=== PATIENT | male | born 1975 | race Caucasian/White ===

== ENCOUNTER 2017-08-30 04:19 | Emergency (ER) | payer SELFPAY ==
[~2017-08-30] VITALS: Ht 172.7 cm; Wt 70.3 kg
[~2017-08-30 04:19] MED LIST: CLIN150C14 PO; OXYC-323 PO
[2017-08-30 04:27] VITALS: BP 155/83
[2017-08-30] MEDS ORDERED: NAPR-695 PO (04:36)
[2017-08-30] MEDS ORDERED: METH35.4 TP (04:36)
--- NOTE | 2017-08-30 04:37 | PHYS DOC ---
Past Medical History Past Medical History: No Pertinent History Past Surgical History: Other Additional Past Surgical Histo: WISDOM TEETH Alcohol Use: Occasionally Drug Use: None Adult General Chief Complaint Chief Complaint: BACK PAIN OR INJURY HPI HPI Patient is a 41 year old male who presents up with complains of low back pain going on for a few days. Patient denies any fevers, rashes, incontinence or retention or saddle anesthesia. No direct trauma. Patient has a history of sciatica. Patient states some his low back started but back bothering him when he was at work, he feels worse when he extends or reaches for things or twists his trunk. No other complaints Review of Systems Review of Systems Constitutional: Denies fever or chills [] HENT: Denies nasal congestion or sore throat [] Respiratory: Denies cough or shortness of breath [] Cardiovascular: No chest pain GI: Denies abdominal pain, nausea, vomiting : Denies dysuria or hematuria or incontinence or retention Musculoskeletal: Denies joint pain. Yes to low back pain Integument: Denies rash or skin lesions [] Neurologic: Denies headache, focal weakness or sensory changes. Denies isidro with ambulation Allergies Allergies Allergies Coded Allergies Type Severity Reaction Last Updated Verified Penicillins Allergy Intermediate HIVES 06/30/14 Yes Physical Exam Physical Exam Constitutional: Well developed, well nourished, no acute distress, non-toxic appearance. [] HENT: Normocephalic, atraumatic, Eyes: EOMI, conjunctiva normal, no discharge. [] Neck: Normal range of motion, no tenderness, supple, no stridor. [] Cardiovascular:Heart rate regular rhythm, no murmur, normal perfusion Lungs & Thorax: No tachypnea Abdomen: Bowel sounds normal, soft, no tenderness, no masses, no pulsatile masses. [] Skin: Warm, dry, no erythema, no rash. [] Back: Mild diffuse tenderness to palpation in the low back, there are no step- offs. Extremities: No tenderness, no cyanosis, , ROM intact, no edema. [] Neurologic: Alert and oriented X 3, normal motor function, ambulates with normal gait without assistance in the ED, no focal deficits noted. [] Psychologic: Affect normal, judgement normal, mood normal. [] EKG EKG [] Radiology/Procedures Radiology/Procedures [] Course & Med Decision Making Course & Med Decision Making Pertinent Labs and Imaging studies reviewed. (See chart for details) [] Dragon Disclaimer Dragon Disclaimer This electronic medical record was generated, in whole or in part, using a voice recognition dictation system. Departure Departure Impression: Primary Impression: Low back pain Disposition: HOME, SELF-CARE Condition: STABLE Referrals: NO PCP (PCP) Patient Instructions: Back Pain, Adult Additional Instructions: Please be sure to be rechecked and reevaluated in 2 days, is to follow-up with your PCP or at one of the clinics in the list provided to you today. If your symptoms worsen or new concerning symptoms develop please return to the ED immediately Scripts Methyl Salicylate/Menthol (ICY HOT CREAM) 35.4 Gm Cream..g. 35.4 GM TP BID for 3 Days, #6 EACH apply thin layer to affected area Prov: Elsa BEE MD 08/30/17 Naproxen (NAPROXEN) 375 Mg Tablet 1 TAB PO TID for 7 Days, #21 TAB 0 Refills Prov: Elsa BEE MD 08/30/17 Elsa BEE MD Aug 30, 2017 04:37
== END 2017-08-30 04:53 | disposition home or self-care (01) ==
LOC: ER 04:19
DX: M54.5 Low back pain (principal); Z88.0 Allergy status to penicillin
CPT/HCPCS: 99283

== ENCOUNTER 2018-05-17 13:35 | Emergency (ER) | payer BC ==
[2018-05-17] MEDS: ASPIRIN CHEWABLE 81 MG TABLET. PO (13:55)
[2018-05-17 14:04] LABS: ADD MAN DIFF? NO
[2018-05-17 14:10] LABS: BASO # 0.1 x10^3/uL (0.0-0.2); BASO % 0 % (0-3); EOS # 0.1 x10^3/uL (0.0-0.7); EOS % 0 % (0-3); HEMATOCRIT 43.3 % (39.0-53.0); HEMOGLOBIN 14.8 g/dL (13.0-17.5); LYMPH # 1.8 x10^3/uL (1.0-4.8); LYMPH % 14 % (24-48); MEAN CORPUSCULAR HEMOGLOBIN 31 pg (25-35); MEAN CORPUSCULAR HGB CONC 34 g/dL (31-37); MEAN CORPUSCULAR VOLUME 91 fL (79-100); MONO # 0.5 x10^3/uL (0.0-1.1); MONO % 4 % (0-9); NEUT # 10.5 x10^3uL (1.8-7.7); NEUT % 81 % (31-73); PLATELET COUNT 243 x10^3/uL (140-400); RED BLOOD COUNT 4.74 x10^6/uL (4.30-5.70); WHITE BLOOD COUNT 12.9 x10^3/uL (4.0-11.0)
[2018-05-17 14:18] LABS: INR 1.1 (0.8-1.1); PROTHROMBIN TIME PATIENT 13.4 SEC (11.7-14.0)
[2018-05-17 14:21] LABS: ANION GAP 3 (6-14); BLOOD UREA NITROGEN 12 mg/dL (8-26); BUN/CREATININE RATIO 13 (6-20); CALCIUM 8.7 mg/dL (8.5-10.1); CARBON DIOXIDE 29 mmol/L (21-32); CHLORIDE 107 mmol/L (98-107); CREATININE 0.9 mg/dL (0.7-1.3); GFR 93.5; GLUCOSE 118 mg/dL (70-99); SODIUM 139 mmol/L (136-145)
[2018-05-17 14:26] LABS: ALBUMIN 4.1 g/dL (3.4-5.0); ALBUMIN/GLOBULIN RATIO 1.1 (1.0-1.7); ALK PHOS 81 U/L (46-116); ALT (SGPT) 25 U/L (16-63); AST (SGOT) 19 U/L (15-37); CREATINE KINASE 124 U/L (39-308); LIPASE 171 U/L (73-393); MAGNESIUM 2.2 mg/dL (1.8-2.4); TOTAL BILIRUBIN 0.4 mg/dL (0.2-1.0); TOTAL PROTEIN 7.8 g/dL (6.4-8.2)
[2018-05-17 14:30] LABS: TROPONINI < 0.017 ng/mL (0.000-0.055)
[2018-05-17 14:35] LABS: NT-PRO BNP 44 pg/mL (0-124)
[2018-05-17 14:35] LABS: CKMB INDEX 0.7 % (0-4); CKMB MASS 0.9 ng/mL (0.0-3.6); CREATINE KINASE 126 U/L (39-308)
== END 2018-05-17 15:45 | disposition home or self-care (01) ==
LOC: ER 13:35
DX: F41.0 Panic disorder [episodic paroxysmal anxiety] (principal); R07.89 Other chest pain; F19.10 Other psychoactive substance abuse, uncomplicated; R11.0 Nausea; R42 Dizziness and giddiness; F17.210 Nicotine dependence, cigarettes, uncomplicated; Z71.6 Tobacco abuse counseling; Z88.0 Allergy status to penicillin; Z91.013 Allergy to seafood
CPT/HCPCS: 36415; 71045; 80053; 82550; 82553; 83690; 83735; 83880; 84484; 85025; 85610; 93005; 99285-25

== ENCOUNTER 2018-05-22 12:51 | Emergency (ER) | payer SELFPAY, BC ==
[2018-05-22 13:11] LABS: ADD MAN DIFF? NO
[2018-05-22] MEDS: IV NORMAL SALINE 1000ML BAG 1,000 ML IV (13:15)
[2018-05-22 13:17] LABS: BASO # 0.1 x10^3/uL (0.0-0.2); BASO % 1 % (0-3); EOS % 0 % (0-3); HEMATOCRIT 47.2 % (39.0-53.0); HEMOGLOBIN 16.2 g/dL (13.0-17.5); LYMPH % 15 % (24-48); MEAN CORPUSCULAR HEMOGLOBIN 31 pg (25-35); MEAN CORPUSCULAR HGB CONC 34 g/dL (31-37); MEAN CORPUSCULAR VOLUME 91 fL (79-100); MONO # 0.6 x10^3/uL (0.0-1.1); MONO % 5 % (0-9); NEUT # 10.4 x10^3uL (1.8-7.7); NEUT % 79 % (31-73); PLATELET COUNT 316 x10^3/uL (140-400); RED BLOOD COUNT 5.17 x10^6/uL (4.30-5.70)
[2018-05-22] MEDS: ASPIRIN 325 MG TABLET PO (13:18)
[2018-05-22 13:26] LABS: INR 1.1 (0.8-1.1); PARTIAL THROMBOPLASTIN TIME 36 SEC (24-38); PROTHROMBIN TIME PATIENT 13.6 SEC (11.7-14.0)
[2018-05-22 13:30] LABS: MAGNESIUM 1.8 mg/dL (1.8-2.4)
[2018-05-22 13:30] LABS: LIPASE 92 U/L (73-393)
[2018-05-22 13:32] LABS: D-DIMER 0.27 ug/mlFEU (0.00-0.50)
[2018-05-22 13:38] LABS: ACETAMIN < 2 mcg/ml (10-30); ETHANOL < 10 mg/dL (0-10); SALIC < 2.8 mg/dL (2.8-20.0)
[2018-05-22 13:38] LABS: TROPONINI < 0.017 ng/mL (0.000-0.055)
[2018-05-22 13:44] LABS: CKMB INDEX 0.7 % (0-4); CKMB MASS 0.9 ng/mL (0.0-3.6); CREATINE KINASE 122 U/L (39-308)
[2018-05-22 13:44] LABS: NT-PRO BNP 23 pg/mL (0-124)
[2018-05-22 13:45] LABS: THYROID STIM HORMONE (TSH) 0.629 uIU/mL (0.358-3.74)
[2018-05-22 14:16] LABS: ANION GAP 17 (6-14); BLOOD UREA NITROGEN 12 mg/dL (8-26); BUN/CREATININE RATIO 9 (6-20); CALCIUM 10.1 mg/dL (8.5-10.1); CARBON DIOXIDE 23 mmol/L (21-32); CHLORIDE 98 mmol/L (98-107); CREATININE 1.3 mg/dL (0.7-1.3); GFR 61.1; GLUCOSE 148 mg/dL (70-99); POTASSIUM 3.6 mmol/L (3.5-5.1); SODIUM 138 mmol/L (136-145)
[2018-05-22 14:22] LABS: ALBUMIN 4.7 g/dL (3.4-5.0); ALBUMIN/GLOBULIN RATIO 1.3 (1.0-1.7); ALK PHOS 76 U/L (46-116); ALT (SGPT) 22 U/L (16-63); AST (SGOT) 19 U/L (15-37); TOTAL BILIRUBIN 1.2 mg/dL (0.2-1.0); TOTAL PROTEIN 8.4 g/dL (6.4-8.2)
== END 2018-05-22 15:50 | disposition home or self-care (01) ==
LOC: ER 12:51
DX: F41.9 Anxiety disorder, unspecified (principal); R07.89 Other chest pain; E86.0 Dehydration; F14.10 Cocaine abuse, uncomplicated; F15.10 Other stimulant abuse, uncomplicated; F12.10 Cannabis abuse, uncomplicated; Z88.0 Allergy status to penicillin; R20.2 Paresthesia of skin; Z91.013 Allergy to seafood
CPT/HCPCS: 36415; 71045; 80053; 80329; 82553; 83690; 83735; 83880; 84443; 84484; 85025; 85379; 85610; 85730; 93005; 96361; 96374; 99285-25; G0480; G6039; J2060; J7030

== ENCOUNTER → 2018-10-31 | Emergency (ER) | payer OTHER ==
[~2018-10-31] VITALS: Ht 182.9 cm; Wt 72.6 kg
[~2018-10-31] MED LIST changes: +HYDR25TA PO; +METH35.4 TP; +NAPR-695 PO; -OXYC-323 PO; +OXYC1TAB15 PO
[2018-10-31 04:47] LABS: BASO # 0.1 x10^3/uL (0.0-0.2); BASO % 1 % (0-3); EOS # 0.1 x10^3/uL (0.0-0.7); EOS % 2 % (0-3); HEMATOCRIT 43.4 % (39.0-53.0); HEMOGLOBIN 14.9 g/dL (13.0-17.5); LYMPH # 3.1 x10^3/uL (1.0-4.8); LYMPH % 38 % (24-48); MEAN CORPUSCULAR HEMOGLOBIN 32 pg (25-35); MEAN CORPUSCULAR HGB CONC 34 g/dL (31-37); MEAN CORPUSCULAR VOLUME 94 fL (79-100); MONO # 0.3 x10^3/uL (0.0-1.1); MONO % 4 % (0-9); NEUT # 4.6 x10^3uL (1.8-7.7); NEUT % 56 % (31-73); PLATELET COUNT 233 x10^3/uL (140-400); RED BLOOD COUNT 4.63 x10^6/uL (4.30-5.70); RED CELL DISTRIBUTION WIDTH 13.3 % (11.5-14.5); WHITE BLOOD COUNT 8.3 x10^3/uL (4.0-11.0)
[2018-10-31 04:56] LABS: CALCIUM 8.5 mg/dL (8.5-10.1); CREATININE 0.8 mg/dL (0.7-1.3); GFR 106.5; POTASSIUM 3.6 mmol/L (3.5-5.1)
[2018-10-31 05:03] LABS: ACETAMIN < 2 mcg/ml (10-30); ALBUMIN 3.6 g/dL (3.4-5.0); ETHANOL 59 mg/dL (0-10); SALIC 3.1 mg/dL (2.8-20.0); TOTAL BILIRUBIN 0.2 mg/dL (0.2-1.0); TOTAL PROTEIN 7.1 g/dL (6.4-8.2)
--- NOTE | 2018-10-31 05:06 | PHYS DOC ---
Past Medical History Past Medical History: Anxiety, Depression Past Surgical History: Other Additional Past Surgical Histo: WISDOM TEETH Alcohol Use: Occasionally Drug Use: Cocaine, Heroin, Marijuana, Methamphetamine, Other Adult General Chief Complaint Chief Complaint: DEPRESSION HPI HPI 43-year-old male who presents with complaint of severe depression. Patient states that he has been under an extreme amount of stress, having just recently lost his job, lost his place of living and his car. Patient does admit to having had some thoughts of suicide but has not had any plan. He states that he just feels very helpless due to his situation and wants to get help. He denies chest pain, shortness breath or other symptoms. Review of Systems Review of Systems Constitutional: Denies fever or chills [] Respiratory: Denies cough or shortness of breath [] Cardiovascular: No additional information not addressed in HPI [] Neurologic: Denies headache, focal weakness or sensory changes [] Psychiatric: Complains of depression and suicidal ideation without plan. [] All other systems were reviewed and found to be within normal limits, except as documented in this note. Allergies Allergies Allergies Coded Allergies Type Severity Reaction Last Updated Verified shellfish derived Allergy Severe ANAPHYLAXIS 05/22/18 Yes Penicillins Allergy Intermediate HIVES 05/22/18 Yes Physical Exam Physical Exam Constitutional: Well developed, well nourished, no acute distress, non-toxic appearance. [] HENT: Normocephalic, atraumatic, bilateral external ears normal, oropharynx moist, no oral exudates, nose normal. [] Eyes: PERRLA, EOMI, conjunctiva normal, no discharge. [] Neck: Normal range of motion, no tenderness, supple, no stridor. [] Cardiovascular:Heart rate regular rhythm, no murmur [] Lungs & Thorax: Bilateral breath sounds clear to auscultation [] Abdomen: Bowel sounds normal, soft, no tenderness, no masses, no pulsatile masses. [] Skin: Warm, dry, no erythema, no rash. [] Extremities: No tenderness, no cyanosis, no clubbing, ROM intact, no edema. [] Neurologic: Alert and oriented X 3, normal motor function, normal sensory function, no focal deficits noted. [] Psychologic: Patient has mildly flattened affect with depressed mood. Patient is tearful on exam. [] Current Patient Data Vital Signs Vital Signs Date Time Temp Pulse Resp B/P (MAP) Pulse Ox O2 Delivery O2 Flow Rate FiO2 10/31/18 06:03 77 109/67 (81) 97 Room Air 10/31/18 02:42 97.7 16 97.7 Lab Values Laboratory Tests Test 10/31/18 04:37 10/31/18 05:43 White Blood Count 8.3 x10^3/uL (4.0-11.0) Red Blood Count 4.63 x10^6/uL (4.30-5.70) Hemoglobin 14.9 g/dL (13.0-17.5) Hematocrit 43.4 % (39.0-53.0) Mean Corpuscular Volume 94 fL (79-100) Mean Corpuscular Hemoglobin 32 pg (25-35) Mean Corpuscular Hemoglobin Concent 34 g/dL (31-37) Red Cell Distribution Width 13.3 % (11.5-14.5) Platelet Count 233 x10^3/uL (140-400) Neutrophils (%) (Auto) 56 % (31-73) Lymphocytes (%) (Auto) 38 % (24-48) Monocytes (%) (Auto) 4 % (0-9) Eosinophils (%) (Auto) 2 % (0-3) Basophils (%) (Auto) 1 % (0-3) Neutrophils # (Auto) 4.6 x10^3uL (1.8-7.7) Lymphocytes # (Auto) 3.1 x10^3/uL (1.0-4.8) Monocytes # (Auto) 0.3 x10^3/uL (0.0-1.1) Eosinophils # (Auto) 0.1 x10^3/uL (0.0-0.7) Basophils # (Auto) 0.1 x10^3/uL (0.0-0.2) Sodium Level 144 mmol/L (136-145) Potassium Level 3.6 mmol/L (3.5-5.1) Chloride Level 106 mmol/L (98-107) Carbon Dioxide Level 27 mmol/L (21-32) Anion Gap 11 (6-14) Blood Urea Nitrogen 14 mg/dL (8-26) Creatinine 0.8 mg/dL (0.7-1.3) Estimated GFR (Cockcroft-Gault) 106.5 BUN/Creatinine Ratio 18 (6-20) Glucose Level 129 mg/dL (70-99) H Calcium Level 8.5 mg/dL (8.5-10.1) Total Bilirubin 0.2 mg/dL (0.2-1.0) Aspartate Amino Transferase (AST) 30 U/L (15-37) Alanine Aminotransferase (ALT) 33 U/L (16-63) Alkaline Phosphatase 77 U/L (46-116) Total Protein 7.1 g/dL (6.4-8.2) Albumin 3.6 g/dL (3.4-5.0) Albumin/Globulin Ratio 1.0 (1.0-1.7) Salicylates Level 3.1 mg/dL (2.8-20.0) Salicylate Last Dose Date Salicylate Last Dose Time Acetaminophen Level < 2 mcg/ml (10-30) L Acetaminophen Last Dose Date Acetaminophen Last Dose Time Ethyl Alcohol Level 59 mg/dL (0-10) H Urine Collection Type Void Urine Color Yellow Urine Clarity Clear Urine pH 5.5 Urine Specific [place] 1.020 Urine Protein Negative mg/dL (NEG-TRACE) Urine Glucose (UA) Negative mg/dL (NEG) Urine Ketones (Stick) Negative mg/dL (NEG) Urine Blood Negative (NEG) Urine Nitrite Negative (NEG) Urine Bilirubin Negative (NEG) Urine Urobilinogen Dipstick 0.2 mg/dL (0.2 mg/dL) Urine Leukocyte Esterase Negative (NEG) Urine RBC Occ /HPF (0-2) Urine WBC Occ /HPF (0-4) Urine Squamous Epithelial Cells Occ /LPF Urine Bacteria Few /HPF (0-FEW) Urine Mucus Marked /LPF Urine Opiates Screen Neg (NEG) Urine Methadone Screen Neg (NEG) Urine Barbiturates Neg (NEG) Urine Phencyclidine Screen Neg (NEG) Urine Amphetamine/Methamphetamine Neg (NEG) Urine Benzodiazepines Screen Pos (NEG) Urine Cocaine Screen Neg (NEG) Urine Cannabinoids Screen Pos (NEG) Urine Ethyl Alcohol Pos (NEG) Laboratory Tests 10/31/18 04:37 Laboratory Tests 10/31/18 04:37 EKG EKG [] Radiology/Procedures Radiology/Procedures [PROCEDURE: HAND RIGHT 3V Right hand, 3 views, 10/31/2018: HISTORY: Punched a wall There is a fracture of the distal fourth metacarpal at the base of the metacarpal head with mild volar angulation and displacement of the distal fracture fragment. There is an old healed fracture of the distal fifth metacarpal. There is a nondisplaced fracture of the proximal fifth metacarpal. Moderate overlying soft tissue swelling is seen. IMPRESSION: Recent fractures of the distal fourth metacarpal and the proximal fifth metacarpal as described above.] Course & Med Decision Making Course & Med Decision Making Pertinent Labs and Imaging studies reviewed. (See chart for details) Patient seen and evaluated by your medical staff and a mental health workup was completed. Workup was reviewed and patient is medically cleared for PAT team. At this time, until health consult is pending and patient is being signed out to Dr. Ponce at 6:20 AM. 9:20 AM: Patient care was assumed at 6 AM shift change from Dr. Garza. The patient presented to the emergency department with severe depression, related to several social stressors. His labs have been reviewed and he was assessed by the PAT team. He has been complaining of right hand pain, he states about 2 weeks ago he punched a wall. He did have some tenderness and soft tissue swelling, and an XR was obtained which showed a boxer's fracture. The patient does have intact flexion and extension of his digits. I discussed importance of hand surgery follow-up. The patient will be transferred to [place], where he will undergo psychiatric treatment. He denies active suicidal ideation at this time. SPLINT APPLICATION PROCEDURE NOTE: A short arm ulnar gutter splint was placed by ER nursing staff, and inspected by me post placement. PMS intact. Dragon Disclaimer Dragon Disclaimer This electronic medical record was generated, in whole or in part, using a voice recognition dictation system. Departure Departure Impression: Primary Impression: Depression Additional Impression: Metacarpal bone fracture Disposition: 05 TRANSFER OTHER ([place]) Condition: STABLE Patient Instructions: Cast or Splint Care, Depression, Adult, Hand Fracture, Fifth Metacarpal, Hand Fracture, Metacarpals Additional Instructions: Follow-up with hand surgery at for further evaluation and treatment of your hand fractures, call [phone] to schedule an appointment. Problem Qualifiers BRANDY GARZA Jr. DO Oct 31, 2018 05:06 PAGE PONCE MD Oct 31, 2018 09:26
[2018-10-31 06:04] LABS: BILIRUBIN,URINE NEGATIVE (NEG); CLARITY,URINE CLEAR; COLOR,URINE YELLOW; NITRITE,URINE NEGATIVE (NEG); PH,URINE 5.5; PROTEIN,URINE NEGATIVE (NEG-TRACE); UROBILINOGEN,URINE 0.2 mg/dL (0.2 mg/dL)
[2018-10-31 06:09] LABS: BARBITURATES NEG (NEG); BENZODIAZEPINES POS (NEG); CANNABINOIDS POS (NEG); COCAINE NEG (NEG); METHADONE NEG (NEG); OPIATES NEG (NEG); PHENCYCLIDINE NEG (NEG)
[2018-10-31 06:10] LABS: AMPHETAMINE/METHAMPHETAMINE NEG (NEG)
[2018-10-31 06:11] LABS: SQUAMOUS EPITHELIAL CELL,UR OCC /LPF
[2018-10-31 06:12] LABS: BACTERIA,URINE FEW /HPF (0-FEW); RBC,URINE OCC /HPF (0-2); WBC,URINE OCC /HPF (0-4)
--- NOTE | 2018-10-31 09:04 | RAD ---
Right hand, 3 views, 10/31/2018: HISTORY: Punched a wall There is a fracture of the distal fourth metacarpal at the base of the metacarpal head with mild volar angulation and displacement of the distal fracture fragment. There is an old healed fracture of the distal fifth metacarpal. There is a nondisplaced fracture of the proximal fifth metacarpal. Moderate overlying soft tissue swelling is seen. IMPRESSION: Recent fractures of the distal fourth metacarpal and the proximal fifth metacarpal as described above. Electronically signed by: Facundo Díaz MD (10/31/2018 9:00 AM) [facility]
[2018-10-31 10:45] VITALS: BP 109/67
== END ==
LOC: ER 01:16
DX: S62.394A Other fracture of fourth metacarpal bone, right hand, initial encounter for closed fracture (principal); S62.396A Other fracture of fifth metacarpal bone, right hand, initial encounter for closed fracture; F32.9 Major depressive disorder, single episode, unspecified; F41.9 Anxiety disorder, unspecified; Z91.013 Allergy to seafood; Z88.0 Allergy status to penicillin; W22.01XA Walked into wall, initial encounter; Y93.89 Activity, other specified; Y92.89 Other specified places as the place of occurrence of the external cause; Y99.8 Other external cause status
CPT/HCPCS: 29125; 36415; 73130; 80053; 80307; 80329; 81001; 85025; 99284; G0480; G6039